=== PATIENT | female | born 1990 | race Two or more races ===

== ENCOUNTER 2017-06-25 13:15 | Observation (INO) | payer MEDICAID ==
--- NOTE | 2017-06-25 13:41 | ER Document Report ---
ED GI/ - General Chief Complaint: Abdominal Pain Stated Complaint: ABDOMINAL PAIN Time Seen by Provider: 06/25/17 13:40 Mode of Arrival: Ambulatory Information source: Patient Notes: 27yo female had may.07 in [facility]. Having cramping and bleeding ever since. of last week did not bleed. Bleeding worse since with clots. . Non painful Sex with condom since may 07. Almost fainted in the shower today, was bleeding alot, was lightheaded. No hx anemia, no transfusion, 2 c section, zhane. Seen in ER on 05-12, given cytotec. [facility] , [facility] done, said everything was OK. Started contracepitve patch betw. 05-12 and . Wears it for 6 days, then off 1 day, then new patch (total 3 weeks) Xulane -going 24 hours without the hormone. Some pelvic cramping when clots come out, took ibuprofen- TRAVEL OUTSIDE OF THE [place] IN LAST 30 DAYS: No - Related Data Allergies/Adverse Reactions: medroxyprogesterone acetate [From Depo-Provera] Allergy (Verified 06/25/17 13:21 ) Past Medical History - General Information source: Patient - Social History Smoking Status: Never Smoker Frequency of alcohol use: None Drug Abuse: None Lives with: Family Family History: Reviewed & Not Pertinent - Medical History Medical History: Negative Renal/ Medical History: Denies: Hx Peritoneal Dialysis Past Surgical History: Reports: Hx Section - x2, Hx Cholecystectomy, Other - instrument abortoion 11-4 - Immunizations Hx Diphtheria, Pertussis, Tetanus Vaccination: No Review of Systems - Review of Systems Constitutional: No symptoms reported EENT: No symptoms reported Cardiovascular: No symptoms reported Respiratory: No symptoms reported Gastrointestinal: No symptoms reported Genitourinary: No symptoms reported Female Genitourinary: See HPI Musculoskeletal: No symptoms reported Skin: No symptoms reported Hematologic/Lymphatic: No symptoms reported Neurological/Psychological: No symptoms reported Physical Exam - Vital signs Vitals: Temp Pulse BP Pulse Ox 98.4 F 81 116/64 99 06/25/17 13:41 06/25/17 13:41 06/25/17 13:41 06/25/17 13:41 Interpretation: Normal - General General appearance: Appears well, Alert - HEENT Head: Normocephalic, Atraumatic Eyes: Normal Conjunctiva: Normal Pupils: PERRL Neck: Supple. No: Thyromegally - Respiratory Respiratory status: No respiratory distress Chest status: Nontender Breath sounds: Normal Chest palpation: Normal - Cardiovascular Rhythm: Regular Heart sounds: Normal auscultation Murmur: No - Abdominal Inspection: Normal Distension: No distension Bowel sounds: Normal Tenderness: Tender - mild suprapubic Organomegaly: No organomegaly - Back Back: Normal, Nontender. No: CVA tenderness - Extremities General upper extremity: Normal inspection, Nontender, Normal color, Normal ROM , Normal temperature General lower extremity: Normal inspection, Nontender, Normal color, Normal ROM , Normal temperature, Normal weight bearing. No: Meggan's sign - Neurological Neuro grossly intact: Yes Cognition: Normal Orientation: AAOx4 [place] Coma Scale Eye Opening: Spontaneous Margarita Coma Scale Verbal: Oriented Margarita Coma Scale Motor: Obeys Commands [place] Coma Scale Total: 15 Speech: Normal Motor strength normal: LUE, RUE, LLE, RLE Sensory: Normal - Psychological Associated symptoms: Normal affect, Normal mood - Skin Skin Temperature: Warm Skin Moisture: Dry Skin Color: Normal Skin irregularity: negative: Rash Course - Re-evaluation Re-evalutation: 06/25/17 15:23 Urinalysis blood is due to the vaginal bleeding but she does have greater than 182 WBCs. She is being sent for transvaginal ultrasound. 06/25/17 15:23 06/25/17 17:[address] forman who read the US, quantitative 10. Consult Dr. Adolfo Adams the [employer] on-call who recommends putting the patient on an Necon 1/35 daily and to stop the patch and have her reschedule appointment for a repeat ultrasound in 2 weeks. I will have her follow-up if the bleeding increases and she understands these instructions. 06/25/17 17:29 very little clot when she went to bathroom at this time, no heavy bleeding. 06/25/17 17:[address] Adams back because he wanted her to have 1/35 which Necon only comes in 0.5/35 or 1/50 and he recommended that I prescribed for Necon 35. 06/25/17 17:51 Patient called me because she is now dizzy and weak after filling of the toilet bowl with bright red blood it was hortencia bleeding which I saw myself. I have consulted with Dr. Betancur and I am doing a pelvic at this time starting a saline lock. 06/25/17 18:07 no food since 1100, 1 sip of water. Hortencia hemorrhaging with clots from vagina, so fast can't see the cervix. called dr. adams back and he will come see the pt. 06/25/17 19:08 pt going to OR for d and C - Vital Signs Vital signs: Temp Pulse Resp BP Pulse Ox 98.4 F 81 20 116/74 98 06/25/17 13:41 06/25/17 13:41 06/25/17 18:16 06/25/17 18:16 06/25/17 18:16 - Laboratory Result Diagrams: 06/25/17 14:07 06/25/17 14:07 Laboratory results interpreted by me: 06/25/17 06/25/17 06/25/17 14:07 14:07 14:07 Hgb 11.3 L Hct 33.4 L Serum HCG, Qual POSITIVE H Beta HCG, Quant Urine Protein >=500 H Urine Blood LARGE H Urine Urobilinogen 2.0 H Ur Leukocyte Esterase SMALL H 06/25/17 14:07 Hgb Hct Serum HCG, Qual Beta HCG, Quant 10.54 H Urine Protein Urine Blood Urine Urobilinogen Ur Leukocyte Esterase Discharge - Discharge Clinical Impression: Vaginal bleeding, Pyuria, 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 Urinary tract infection Qualifiers: Urinary tract infection type: site unspecified Hematuria presence: without hematuria Qualified Code(s): N39.0 - Urinary tract infection, site not specified Condition: Fair Disposition: ADMITTED OBSERVATION Admitting Provider: [facility] Admitted: OR Instructions: Urinary Tract Infection ([facility]), Vaginal Bleeding ([facility]) Additional Instructions: start the NECON 35 daily today schedule appt with [facility] for Jul 09, (2 weeks) stop the patches Return to the emergency room increased bleeding or cramping dizziness Prescriptions: Cephalexin Monohydrate [Keflex 500 mg Capsule] 500 mg PO QID #28 capsule Forms: Return to Work Referrals: KARLOS ADAMS MD [ACTIVE STAFF] - 07/09/17
[2017-06-25 14:28] LABS: ABSOLUTE BASOPHILS # (AUTO) 0.1 10^3/uL (0.0-0.2); ABSOLUTE EOSINOPHILS # (AUTO) 0.3 10^3/uL (0.0-0.6); ABSOLUTE LYMPHOCYTES (AUTO) 1.4 10^3/uL (0.5-4.7); ABSOLUTE MONOCYTES (AUTO) 0.6 10^3/uL (0.1-1.4); BASOPHILS % (AUTO) 0.6 % (0-2); EOSINOPHILS % (AUTO) 3.4 % (0-6); HEMATOCRIT 33.4 % (36.0-47.0); HEMOGLOBIN 11.3 g/dL (12.0-15.5); HGB HCT DIFFERENCE 0.5; LYMPHOCYTES % (AUTO) 16.9 % (13-45); MEAN CORPUSCULAR HGB CONC 33.9 g/dL (32.0-36.0); MEAN CORPUSCULAR VOLUME 89 fl (80-97); MONOCYTES % (AUTO) 7.3 % (3-13); RED BLOOD COUNT 3.77 10^6/uL (3.72-5.28); RED CELL DISTRIBUTION WIDTH 13.7 % (11.5-14.0); SEGMENTED NEUTROPHILS % (AUTO) 71.8 % (42-78); WHITE BLOOD COUNT 8.3 10^3/uL (4.0-10.5)
[2017-06-25 14:46] LABS: APPEARANCE,URINE SLIGHTLY-CLOUDY; BILIRUBIN,URINE NEGATIVE (NEGATIVE); GLUCOSE, URINE NEGATIVE (NEGATIVE); KETONES,URINE NEGATIVE (NEGATIVE); LEUKOCYTE ESTERASE,URINE SMALL (NEGATIVE); NITRITE,URINE NEGATIVE (NEGATIVE); PROTEIN,URINE >=500 mg/dL (NEGATIVE); URINE SPECIFIC GRAVITY 1.025
[2017-06-25] MEDS ORDERED: CEPHALEXIN 500 MG CAPSULE PO ONE (15:24)
[2017-06-25 15:29] LABS: ALANINE AMINOTRANSFERASE 21 U/L (9-52); ALBUMIN 4.2 g/dL (3.5-5.0); ALKALINE PHOSPHATASE 64 U/L (38-126); ANION GAP 9 (5-19); ASPARTATE AMINO TRANSFERASE 22 U/L (14-36); BILIRUBIN,DIRECT 0.1 mg/dL (0.0-0.4); BILIRUBIN,TOTAL 0.3 mg/dL (0.2-1.3); BLOOD UREA NITROGEN 7 mg/dL (7-20); CALCIUM 9.6 mg/dL (8.4-10.2); CARBON DIOXIDE 27 mmol/L (22-30); CHLORIDE 104 mmol/L (98-107); CREATININE RESULT 0.61 mg/dL (0.52-1.25); GLUCOSE 90 mg/dL (75-110); POTASSIUM 4.2 mmol/L (3.6-5.0); SODIUM 140.3 mmol/L (137-145); TOTAL PROTEIN 6.8 g/dL (6.3-8.2)
--- NOTE | 2017-06-25 15:54 | RADIOLOGY REPORT (SQ) ---
EXAM DESCRIPTION: U/S NON-OB PELVIS TV W/O DOP COMPLETED DATE/TIME: 06/25/2017 3:35 pm REASON FOR STUDY: 6 weeks vaginal bleeding post COMPARISON: Ultrasound 06/03/2017 TECHNIQUE: Dynamic and static grayscale images acquired of the pelvis via transvaginal approach and recorded on PACS. Additional selected color Doppler and spectral images recorded. LIMITATIONS: None. FINDINGS: UTERUS: Contour normal. No mass. Uterus 10 x 6 x 5 mm in size. ENDOMETRIAL STRIPE: The fundal endometrial canal is abnormal. There is fundal endometrial thickening , up to 1.5 cm in thickness. A prominent myometrial vessel is identified, coursing towards the endom etrial canal. There is a 1 cm pseudoaneurysm with arterial pulsatile flow. CERVIX: Closed, 3 cm in length RIGHT OVARY: No abnormal masses. Right ovary is 4.6 x 2.4 x 2.1 cm in size RIGHT OVARY DOPPLER: Normal arterial vascular flow without evidence for torsion. LEFT OVARY: No abnormal masses. Left ovary 4 x 2.7 x 2.4 cm in size LEFT OVARY DOPPLER: Normal arterial vascular flow without evidence for torsion. FREE FLUID: None noted. OTHER: No other significant finding. 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 There is thickening of the endometrium in the fundal uter us, retained products of conception could not be excluded. . No free cul-de-sac fluid. No adnexal masses. Ovaries unremarkable. TECHNICAL DOCUMENTATION: JOB ID: [id number] [employer]- All Rights Reserved
[2017-06-25 16:27] LABS: ADD ON TESTING BLD IN LAB ACKNOWLEDGE
[2017-06-25] MEDS ORDERED: ACETAMINOPHEN 325 MG TABLET PO ONE (16:51)
[2017-06-25] MEDS ORDERED: IBUPROFEN 600 MG TABLET PO ONE (17:29)
[2017-06-25] MEDS ORDERED: NORMAL SALINE 1000 ML 500 ML IV ONE (18:01)
[2017-06-25] MEDS ORDERED: MORPHINE SULFATE 10 MG/ML INJ IV ONE (18:11)
[2017-06-25] MEDS ORDERED: HYDROMORPHONE HCL INJ/PF 2 MG/ML AMPULE ONE (19:01)
[2017-06-25] MEDS ORDERED: MIDAZOLAM 2 MG/2 ML INJ ONE (19:02)
[2017-06-25] MEDS ORDERED: KETOROLAC TROMETHAMINE 60 MG/2 ML SDV ONE (19:02)
[2017-06-25] MEDS ORDERED: PROPOFOL INJ 200 MG/20 ML VIAL IV ONE (19:02)
[2017-06-25] MEDS ORDERED: DEXAMETHASONE SOD PHOSPHATE INJ 4 MG/1 ML VIAL ONE (19:02)
[2017-06-25] MEDS ORDERED: ONDANSETRON HCL INJ/PF 4 MG/2 ML SDV ONE (19:02)
[2017-06-25] MEDS ORDERED: CEFAZOLIN INJ 1 GM VIAL ONE (19:35)
[2017-06-25] MEDS ORDERED: MEPERIDINE HCL/PF INJ 25 MG/1 ML DISP.SYRIN IV PRN (20:02)
[2017-06-25] MEDS ORDERED: DIPHENHYDRAMINE HCL 50 MG/ML VIAL IV PRN (20:02)
[2017-06-25] MEDS ORDERED: FENTANYL CITRATE INJ/PF 100 MCG/2 ML AMPUL IV PRN ×3 (20:02)
[2017-06-25] MEDS ORDERED: MORPHINE SULFATE 10 MG/ML INJ IV PRN (20:02)
[2017-06-25] MEDS ORDERED: PROMETHAZINE HCL INJ 25 MG/1 ML VIAL IV PRN ×2 (20:02)
[2017-06-25] MEDS ORDERED: OXYCODONE-ACETAMINOPHEN 5-325 MG TABLET PO PRN ×3 (20:02→20:31)
--- NOTE | 2017-06-25 20:14 | Operative Report ---
Operative Report DATE OF SURGERY: 06/25/17 PREOPERATIVE DIAGNOSIS: Heavy bleeding post therapeutic , suspected retained products POSTOPERATIVE DIAGNOSIS: Same OPERATION: Suction D&C SURGEON: KARLOS CACERES ANESTHESIA: GA TISSUE REMOVED OR ALTERED: Uterine contents COMPLICATIONS: None ESTIMATED BLOOD LOSS: 50 cc but prior to surgery she had quite a bit of blood loss in the emergen INTRAOPERATIVE FINDINGS: Uterus sounded 10 cm PROCEDURE: Patient was taken the OR and placed in supine position. General anesthesia was induced. She is placed in dorsolithotomy position using Anil stirrups. Her perineum and vagina were prepared and draped in sterile fashion. Her bladder was drained with red rubber catheter. A weighted speculum was placed in the anterior lip cervix grasped with a tenaculum. Uterus sounded 10 cm before and after the case. The cervix was gently dilated. A size 10 suction curette was then used to evacuate the uterine contents. There appeared to be a decent return of tissue. At the end of the case the uterus was explored with a gentle sharp curette and no retained products were noted. All instruments were removed she is placed back in supine position taken to recovery room stable condition.
[2017-06-25] MEDS ORDERED: RINGERS SOLUTION,LACTATED 1,000 ML IV PRN (20:30)
[2017-06-25 21:29] LABS: HEMATOCRIT 24.3 % (36.0-47.0); MEAN CORPUSCULAR HEMOGLOBIN 30.2 pg (27.0-33.4); MEAN CORPUSCULAR HGB CONC 33.5 g/dL (32.0-36.0); MEAN CORPUSCULAR VOLUME 90 fl (80-97); RED CELL DISTRIBUTION WIDTH 13.1 % (11.5-14.0); WHITE BLOOD COUNT 8.6 10^3/uL (4.0-10.5)
[2017-06-25 21:30] LABS: HEMOGLOBIN 8.1 g/dL (12.0-15.5)
[2017-06-25] MEDS: MISOPROSTOL 0.2 MG TABLET PO SCH (21:49)
[2017-06-25] MEDS ORDERED: DOXYCYCLINE HYCLATE 100 MG in DEXTROSE 5%-WATER 250 ML IV ONE (22:00)
[2017-06-26] MEDS: MISOPROSTOL 0.2 MG TABLET PO SCH ×2 (04:13→08:28)
[2017-06-26 07:07] LABS: HEMATOCRIT 22.5 % (36.0-47.0); HGB HCT DIFFERENCE 0.3; MEAN CORPUSCULAR HEMOGLOBIN 30.1 pg (27.0-33.4); MEAN CORPUSCULAR VOLUME 89 fl (80-97); RED BLOOD COUNT 2.54 10^6/uL (3.72-5.28); RED CELL DISTRIBUTION WIDTH 13.2 % (11.5-14.0); WHITE BLOOD COUNT 13.7 10^3/uL (4.0-10.5)
[2017-06-26 07:13] LABS: HEMOGLOBIN 7.6 g/dL (12.0-15.5)
--- NOTE | 2017-06-26 08:31 | PDOC DISCHARGE SUMMARY ---
General - Admit/Disc Date/PCP Admission Date/Primary Care Provider: 06/25/17 19:16 Discharge Date: 06/26/17 - Discharge Diagnosis (1) Vaginal bleeding Is this a current diagnosis for this admission?: Yes - Additional Information Resuscitation Status: Full Code Home Medications: No Home Medications 06/25/17 History of Present Illness Patient complains of: Vaginal bleeding History of Present Illness: JILL VALENTINE is a 27 year old female Patient was admitted with vaginal bleeding proximal in 1 month after a . She appears to have retained products on ultrasound. She was admitted and underwent a suction D&C and watched overnight. She is up doing well this morning and will be discharged later today. Hospital Course Hospital Course: Patient was admitted and underwent suction D&C. She is now doing very well no more vaginal bleeding. She is tolerating a regular diet. She will be discharged home today Physical Exam - Physical Exam Vital Signs: Temp Pulse Resp BP Pulse Ox 97.9 F 66 18 96/43 L 100 06/26/17 04:22 06/26/17 04:22 06/26/17 04:22 06/26/17 04:22 06/26/17 04:22 Intake & Output 06/25/17 06/26/17 06/27/17 06:59 06:59 06:59 Intake Total 1355 Output Total 1960 Balance -605 General appearance: PRESENT: no acute distress, well-developed, well-nourished GI/Abdominal exam: PRESENT: normal bowel sounds, soft. 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 There is thickening of the endometrium in the fundal uterus, retained products of conception could not be excluded. . No free cul-de-sac fluid. No adnexal masses. Ovaries unremarkable. Plan Discharge Plan: Home today with follow-up in 1 week. Discharge medications will be an iron a day. Time Spent: Greater than 30 Minutes
[2017-06-26] MEDS ORDERED: ONDANSETRON 4 MG TAB.RAPDIS PO PRN (09:16)
[2017-06-26] MEDS ORDERED: ONDANSETRON 4 MG TAB.RAPDIS ONE (09:23)
[2017-06-26 11:10] VITALS: BP 100/56
== END 2017-06-26 11:40 | disposition home or self-care (01) ==
LOC: ER 13:15 → EH 19:16 → 2S 20:51
PROVIDERS: ATTEND Obstetrics & Gynecology
PROC: 10D17Z9 Manual Extraction of Products of Conception, Retained, Via Natural or Artificial Opening (ICD-10-PCS; principal; 2017-06-25 20:00)
DX: O03.6 Delayed or excessive hemorrhage following complete or unspecified spontaneous abortion (principal); N39.0 Urinary tract infection, site not specified; Z90.49 Acquired absence of other specified parts of digestive tract
CPT/HCPCS: 99285; 96361; 96374; 86900; 86901; 36415 ×2; 87086; 86850; 84702; 84703; 85025; 85027 ×2; 87088; 80053; 81001; 88305 ×2; 76830; 59812; J3490 ×3; J2250; J0690; J1100; J1885; S0119; J2270; J1170; J2405; J7060; J7030; J7120; J2704; 940

== ENCOUNTER 2017-06-27 19:56 | Emergency (ER) | payer MEDICAID ==
[2017-06-27] MEDS ORDERED: NORMAL SALINE 1000 ML 1,000 ML IV ONE (20:29)
--- NOTE | 2017-06-27 20:30 | ER Document Report ---
ED Medical Screen (RME) - General Chief Complaint: General Weakness Stated Complaint: WEAKNESS Time Seen by Provider: 06/27/17 20:25 Mode of Arrival: Ambulatory Information source: Patient Notes: 27-year-old female who had a D&C a few days ago for a incomplete miscarriage presents with complaints of continued vaginal bleeding heavily with generalized weakness Patient was discharged with a hemoglobin of 7.6 I have greeted and performed a rapid initial assessment of this patient. A comprehensive ED assessment and evaluation of the patient, analysis of test results and completion of the medical decision making process will be conducted by additional ED providers. PHYSICAL EXAMINATION: GENERAL: Well-appearing, well-nourished and in no acute distress. HEAD: Atraumatic, normocephalic. EYES: Pupils equal round extraocular movements intact, conjunctiva are normal. ENT: Nares patent NECK: Normal range of motion LUNGS: No respiratory distress Musculoskeletal: Normal range of motion NEUROLOGICAL: Normal speech, normal gait. PSYCH: Normal mood, normal affect. SKIN: Warm, Dry, normal turgor, no rashes or lesions noted. TRAVEL OUTSIDE OF THE [place] IN LAST 30 DAYS: No - Related Data Allergies/Adverse Reactions: medroxyprogesterone acetate [From Depo-Provera] Allergy (Verified 06/25/17 13:21 ) Past Medical History - Social History Frequency of alcohol use: Occasional Drug Abuse: None Renal/ Medical History: Denies: Hx Peritoneal Dialysis Past Surgical History: Reports: Hx Section - x2, Hx Cholecystectomy, Other - instrument abortoion 11-4 - Immunizations Hx Diphtheria, Pertussis, Tetanus Vaccination: No History of Influenza Vaccine for 04/2017 - 09/2017 Season: Yes Physical Exam - Vital signs Vitals: Temp Pulse BP Pulse Ox 98.6 F 86 114/70 99 06/27/17 20:11 06/27/17 20:11 06/27/17 20:11 06/27/17 20:11 Course - Vital Signs Vital signs: Temp Pulse Resp BP Pulse Ox 98.7 F 78 18 146/87 H 99 06/27/17 20:15 06/27/17 20:15 06/27/17 20:15 06/27/17 20:15 06/27/17 20:15
--- NOTE | 2017-06-27 21:05 | ER Document Report ---
ED General - General Chief Complaint: General Weakness Stated Complaint: WEAKNESS Time Seen by Provider: 06/27/17 20:25 Mode of Arrival: Ambulatory Notes: Patient is a 27-year-old female that comes emergency department for chief complaint of feeling weak, tired, and having vaginal bleeding that started tonight. She denies fever, dysuria, vaginal discharge. She had a D&C procedure for possible retained products after an elective which was performed May 07, she had had heavy bleeding since that time. She states that when she was discharged 2 days ago she felt fine, states that today she felt worse and she has been sleeping all day and then began bleeding heavier again this evening. She states she was unable to fill the prescription she was given at discharge the other day. She is unable to tell me what the prescription was. She denies any daily medications. TRAVEL OUTSIDE OF THE [place] IN LAST 30 DAYS: No - Related Data Allergies/Adverse Reactions: medroxyprogesterone acetate [From Depo-Provera] Allergy (Verified 06/25/17 13:21 ) Past Medical History - General Information source: Patient - Social History Smoking Status: Current Every Day Smoker Smoking Education Provided: Yes - <3 min Frequency of alcohol use: Occasional Drug Abuse: None Lives with: Family Family History: Reviewed & Not Pertinent Patient has suicidal ideation: No Patient has homicidal ideation: No Renal/ Medical History: Denies: Hx Peritoneal Dialysis Past Surgical History: Reports: Hx Section - x2, Hx Cholecystectomy, Other - instrument 11-4 - Immunizations Hx Diphtheria, Pertussis, Tetanus Vaccination: No Review of Systems - Review of Systems Constitutional: See HPI EENT: No symptoms reported Cardiovascular: See HPI Respiratory: No symptoms reported Gastrointestinal: No symptoms reported Genitourinary: No symptoms reported Female Genitourinary: See HPI Musculoskeletal: No symptoms reported Skin: No symptoms reported Hematologic/Lymphatic: No symptoms reported Neurological/Psychological: No symptoms reported Physical Exam - Vital signs Vitals: Temp Pulse BP Pulse Ox 98.6 F 86 114/70 99 06/27/17 20:11 06/27/17 20:11 06/27/17 20:11 06/27/17 20:11 Interpretation: Normal - General General appearance: Alert, Other - slightly pale, but alert, responsive, does not appear to be in any distress - HEENT Head: Normocephalic, Atraumatic Eyes: Normal Conjunctiva: Normal Extraocular movements intact: Yes Eyelashes: Normal Pupils: PERRL Nasal: Normal Mouth/Lips: Normal Mucous membranes: Normal Pharynx: Normal Neck: Normal - Respiratory Respiratory status: No respiratory distress Chest status: Nontender Breath sounds: Normal Chest palpation: Normal - Cardiovascular Rhythm: Regular. No: Tachycardia Heart sounds: Normal auscultation, S1 appreciated, S2 appreciated Murmur: No - Abdominal Inspection: Normal Distension: No distension Bowel sounds: Normal Tenderness: Nontender. No: Tender, Guarding Organomegaly: No organomegaly - Genitourinary Speculum exam: Cervix closed Vaginal bleeding: Mild - Minimal spotting with a few clots noted in the vaginal vault, no heavy bleeding, no other abnormality noted. RN Eva present at bedside. - Back Back: Normal, Nontender - Extremities General upper extremity: Normal inspection, Nontender, Normal color, Normal ROM , Normal temperature General lower extremity: Normal inspection, Nontender, Normal color, Normal ROM , Normal temperature, Normal weight bearing. No: Meggan's sign - Neurological Neuro grossly intact: Yes Cognition: Normal Orientation: AAOx4 Margarita Coma Scale Eye Opening: Spontaneous [place] Coma Scale Verbal: Oriented Margarita Coma Scale Motor: Obeys Commands [place] Coma Scale Total: 15 Speech: Normal Motor strength normal: LUE, RUE, LLE, RLE Sensory: Normal - Psychological Associated symptoms: Normal affect, Normal mood - Skin Skin Temperature: Warm Skin Moisture: Dry Skin Color: Normal Course - Re-evaluation Re-evalutation: Discharge summary states she was supposed to be taking daily iron. She states she does not have a prescription for this and was going to increase it in her diet instead. Will prescribe. Patient is not hypotensive or tachycardic, she is mildly pale, she does appear tired but she does not appear to be in any distress. No significant tenderness to the abdomen. Hemoglobin is actually increased from yesterday. Patient is not tachycardic, does not appear dehydrated on examination. Minimal bleeding on vaginal exam. Chemistry unremarkable. Called and spoke with Dr. Booker, ICT ANALYST who she saw previously, discussed options. Tomorrow is [place] and no pharmacy will be open. He does recommend patient be placed on oral contraceptive to help treat bleeding, because nothing is open tomorrow patient will be given a dose of tranexamic acid. He states agreement with this plan and patient is to follow- up in the office otherwise and return if she worsens. I discussed with patient , she states she has been on mixed oral contraceptive before and she only had a reaction when she was given the shot of Depo-Provera. She states she is not allergic to combination oral contraceptive. Patient is asking to go home, orthostatics were checked and she does not have tachycardia or hypotension. Patient discharged with scripts, follow-up recommendations, return precautions which were discussed with patient and significant other at bedside. They state understanding and agreement. - Vital Signs Vital signs: Temp Pulse Resp BP Pulse Ox 98.7 F 60 18 109/57 L 100 06/27/17 20:15 06/27/17 22:22 06/27/17 20:15 06/27/17 22:22 06/27/17 22:21 - Laboratory Result Diagrams: 06/27/17 20:44 06/27/17 20:44 Laboratory results interpreted by me: 06/27/17 06/27/17 20:44 20:44 RBC 2.68 L Hgb 8.0 L Hct 23.8 L Total Protein 6.0 L Discharge - Discharge Clinical Impression: Vaginal bleeding, Weakness Condition: Stable Disposition: HOME, SELF-CARE Additional Instructions: I spoke tonight with Dr. dAolfo Booker, OBGYN. Your hemoglobin is actually not decreased from before, we have given you TXA for the bleeding tonight. Take the iron and contraceptive pills for the anemia and bleeding. Follow up closely with OBGYN in the office. Return if you worsen including dizziness, passing out, abdominal pain, heavy bleeding, fever, or any other concerning symptoms. Prescriptions: Ferrous Sulfate [Iron] 325 mg PO TID #30 tablet Norgestimate-Ethinyl Estradiol [Sprintec 28 Day Tablet] 1 each PO ASDIR PRN #56 tablet PRN Reason:
[2017-06-27 21:06] LABS: ABSOLUTE EOSINOPHILS # (AUTO) 0.5 10^3/uL (0.0-0.6); ABSOLUTE LYMPHOCYTES (AUTO) 3.3 10^3/uL (0.5-4.7); ABSOLUTE MONOCYTES (AUTO) 0.8 10^3/uL (0.1-1.4); ABSOLUTE NEUT (AUTO) 5.3 10^3/uL (1.7-8.2); BASOPHILS % (AUTO) 0.4 % (0-2); EOSINOPHILS % (AUTO) 4.6 % (0-6); HEMATOCRIT 23.8 % (36.0-47.0); HGB HCT DIFFERENCE 0.2; MEAN CORPUSCULAR HGB CONC 33.7 g/dL (32.0-36.0); MEAN CORPUSCULAR VOLUME 89 fl (80-97); MONOCYTES % (AUTO) 8.5 % (3-13); RED BLOOD COUNT 2.68 10^6/uL (3.72-5.28); RED CELL DISTRIBUTION WIDTH 13.5 % (11.5-14.0); SEGMENTED NEUTROPHILS % (AUTO) 53.5 % (42-78); WHITE BLOOD COUNT 9.9 10^3/uL (4.0-10.5)
[2017-06-27 21:19] LABS: ALANINE AMINOTRANSFERASE 20 U/L (9-52); ALBUMIN 3.7 g/dL (3.5-5.0); ALKALINE PHOSPHATASE 54 U/L (38-126); ANION GAP 10 (5-19); ASPARTATE AMINO TRANSFERASE 22 U/L (14-36); BILIRUBIN,DIRECT 0.2 mg/dL (0.0-0.4); BILIRUBIN,TOTAL 0.2 mg/dL (0.2-1.3); BLOOD UREA NITROGEN 9 mg/dL (7-20); CALCIUM 9.2 mg/dL (8.4-10.2); CARBON DIOXIDE 28 mmol/L (22-30); CHLORIDE 106 mmol/L (98-107); GLUCOSE 85 mg/dL (75-110); SODIUM 144.2 mmol/L (137-145)
[2017-06-27] MEDS ORDERED: KETOROLAC TROMETHAMINE INJ/PF 30 MG/1 ML SDV IV ONE (21:26)
[2017-06-27] MEDS ORDERED: TRANEXAMIC ACID INJ/PF 1,000 MG/10 ML SDV IV ONE (22:29)
[2017-06-28 00:12] VITALS: BP 101/61
== END 2017-06-27 23:30 | disposition home or self-care (01) ==
LOC: ER 19:56
DX: N93.9 Abnormal uterine and vaginal bleeding, unspecified (principal); R53.1 Weakness; F17.200 Nicotine dependence, unspecified, uncomplicated
CPT/HCPCS: 99285; 96361; 96374; 96375; 36415; 85025; 80053; J1885; J7030; J3490

== ENCOUNTER 2018-01-13 13:57 | Emergency (ER) | payer MEDICAID ==
[2018-01-13] MEDS ORDERED: ONDANSETRON 4 MG TAB.RAPDIS PO ONE (14:49)
[2018-01-13] MEDS ORDERED: NORMAL SALINE 1000 ML 1,000 ML IV ONE (14:50)
--- NOTE | 2018-01-13 14:54 | ER Document Report ---
ED General - General Chief Complaint: Foot Pain Stated Complaint: CRAMPING Time Seen by Provider: 01/13/18 14:49 Mode of Arrival: Ambulatory Information source: Patient Notes: 27-year-old female presents emergency department with complaints of diffuse muscle cramps that started yesterday. Patient states that she was driving in her car and thinks that she may be dehydrated. She states that she has been drinking water. Or exacerbating factors. She denies any nausea, vomiting, diarrhea, constipation, chest pain, shortness of breath, abdominal pain. TRAVEL OUTSIDE OF THE [place] IN LAST 30 DAYS: No - HPI Onset: Yesterday Onset/Duration: Gradual Quality of pain: Cramping Severity: Mild Associated symptoms: None Exacerbated by: Denies Relieved by: Denies Similar symptoms previously: No Recently seen / treated by doctor: No - Related Data Allergies/Adverse Reactions: medroxyprogesterone acetate [From Depo-Provera] Allergy (Verified 01/13/18 13:59 ) Past Medical History - General Information source: Patient - Social History Smoking Status: Current Every Day Smoker Chew tobacco use (# tins/day): No Frequency of alcohol use: Occasional Drug Abuse: None Family History: Reviewed & Not Pertinent Patient has suicidal ideation: No Patient has homicidal ideation: No Renal/ Medical History: Denies: Hx Peritoneal Dialysis Past Surgical History: Reports: Hx Section - x2, Hx Cholecystectomy, Other - instrument 11-4 - Immunizations Hx Diphtheria, Pertussis, Tetanus Vaccination: No Review of Systems - Review of Systems Constitutional: No symptoms reported EENT: No symptoms reported Cardiovascular: No symptoms reported Respiratory: No symptoms reported Gastrointestinal: No symptoms reported Genitourinary: No symptoms reported Female Genitourinary: No symptoms reported Musculoskeletal: Muscle pain Skin: No symptoms reported Hematologic/Lymphatic: No symptoms reported Neurological/Psychological: No symptoms reported -: Yes All other systems reviewed and negative Physical Exam - Vital signs Vitals: Temp Pulse Resp BP Pulse Ox 97.9 F 154 H 28 H 112/75 98 01/13/18 14:03 01/13/18 14:03 01/13/18 14:03 01/13/18 14:03 01/13/18 14:03 Interpretation: Normal, Tachycardic - Notes Notes: PHYSICAL EXAMINATION: GENERAL: Well-appearing, well-nourished and in no acute distress. HEAD: Atraumatic, normocephalic. EYES: Pupils equal round and reactive to light, extraocular movements intact, conjunctiva are normal. ENT: Nares patent, oropharynx clear without exudates. Moist mucous membranes. NECK: Normal range of motion, supple without lymphadenopathy LUNGS: Breath sounds clear to auscultation bilaterally and equal. No wheezes rales or rhonchi. HEART: Regular rate and rhythm without murmurs ABDOMEN: Soft, nontender, nondistended abdomen. No guarding, no rebound. No masses appreciated. Female : deferred Musculoskeletal: Normal range of motion, no pitting or edema. No cyanosis. NEUROLOGICAL: Cranial nerves grossly intact. Normal speech, normal gait. Normal sensory, motor exams PSYCH: Normal mood, normal affect. SKIN: Warm, Dry, normal turgor, no rashes or lesions noted. Course - Re-evaluation Re-evalutation: 01/13/18 16:39 Labs were obtained and are within normal limits. Patient given fluids, zofran, flexeril in the ED. I will discharge the patient home with a rx for flexeril. Patient instructed to take the medication prescribed as directed, to follow-up with her primary care physician this week, and to return to emergency department for worsening symptoms. - Vital Signs Vital signs: Temp Pulse Resp BP Pulse Ox 97.9 F 154 H 28 H 112/75 98 01/13/18 14:03 01/13/18 14:03 01/13/18 14:03 01/13/18 14:03 01/13/18 14:03 - Laboratory Result Diagrams: 01/13/18 15:31 01/13/18 15:31 Laboratory results interpreted by me: 01/13/18 01/13/18 01/13/18 15:14 15:31 15:31 Hgb 10.2 L Hct 33.5 L MCV 68 L MCH 20.7 L MCHC 30.4 L RDW 26.1 H AST 40 H Urine Urobilinogen 4.0 H Ur Leukocyte Esterase TRACE H Discharge - Discharge Clinical Impression: Muscle cramp Condition: Stable Disposition: HOME, SELF-CARE Instructions: Leg Cramps ([facility]), Family Physicians / Practices Prescriptions: Cyclobenzaprine HCl [Flexeril 10 mg Tablet] 10 mg PO TIDP PRN #15 tablet PRN Reason:
[2018-01-13 15:37] LABS: AMORPHOUS SEDIMENT,URINE TRACE /HPF; APPEARANCE,URINE CLOUDY; BILIRUBIN,URINE NEGATIVE (NEGATIVE); COLOR,URINE YELLOW; GLUCOSE, URINE NEGATIVE (NEGATIVE); KETONES,URINE NEGATIVE (NEGATIVE); LEUKOCYTE ESTERASE,URINE TRACE (NEGATIVE); NITRITE,URINE NEGATIVE (NEGATIVE); PROTEIN,URINE NEGATIVE (NEGATIVE); URINE SPECIFIC GRAVITY 1.018
[2018-01-13 15:51] LABS: ABSOLUTE BASOPHILS # (AUTO) 0.1 10^3/uL (0.0-0.2); ABSOLUTE EOSINOPHILS # (AUTO) 0.2 10^3/uL (0.0-0.6); ABSOLUTE LYMPHOCYTES (AUTO) 1.5 10^3/uL (0.5-4.7); ABSOLUTE NEUT (AUTO) 5.7 10^3/uL (1.7-8.2); BASOPHILS % (AUTO) 0.8 % (0-2); EOSINOPHILS % (AUTO) 1.9 % (0-6); HEMATOCRIT 33.5 % (36.0-47.0); HEMOGLOBIN 10.2 g/dL (12.0-15.5); LYMPHOCYTES % (AUTO) 18.1 % (13-45); MEAN CORPUSCULAR HEMOGLOBIN 20.7 pg (27.0-33.4); MEAN CORPUSCULAR HGB CONC 30.4 g/dL (32.0-36.0); MEAN CORPUSCULAR VOLUME 68 fl (80-97); MONOCYTES % (AUTO) 11.4 % (3-13); PLATELET COUNT 331 10^3/uL (150-450); RED BLOOD COUNT 4.92 10^6/uL (3.72-5.28); RED CELL DISTRIBUTION WIDTH 26.1 % (11.5-14.0); SEGMENTED NEUTROPHILS % (AUTO) 67.8 % (42-78); TOTAL CELLS COUNTED % (AUTO) 100 %; WHITE BLOOD COUNT 8.4 10^3/uL (4.0-10.5)
[2018-01-13 16:06] LABS: ALANINE AMINOTRANSFERASE 33 U/L (9-52); ALBUMIN 4.6 g/dL (3.5-5.0); ALKALINE PHOSPHATASE 70 U/L (38-126); ANION GAP 13 (5-19); ASPARTATE AMINO TRANSFERASE 40 U/L (14-36); BILIRUBIN,DIRECT 0.3 mg/dL (0.0-0.4); BILIRUBIN,TOTAL 0.5 mg/dL (0.2-1.3); BLOOD UREA NITROGEN 14 mg/dL (7-20); CALCIUM 9.8 mg/dL (8.4-10.2); CARBON DIOXIDE 27 mmol/L (22-30); CHLORIDE 105 mmol/L (98-107); CREATINE KINASE 102 U/L (30-135); GLUCOSE 92 mg/dL (75-110); POTASSIUM 4.8 mmol/L (3.6-5.0); SODIUM 144.5 mmol/L (137-145); TOTAL PROTEIN 7.8 g/dL (6.3-8.2)
[2018-01-13 16:11] LABS: ANISOCYTOSIS 3+; HYPOCHROMASIA SLIGHT; OVALOCYTES SLIGHT; POIKILOCYTOSIS SLIGHT; TARGET CELLS SLIGHT
[2018-01-13 16:12] LABS: PLATELET COMMENT ADEQUATE
[2018-01-13] MEDS ORDERED: CYCLOBENZAPRINE HCL 10 MG TABLET PO ONE (16:26)
[2018-01-13 16:49] VITALS: BP 115/70
== END 2018-01-13 16:47 | disposition home or self-care (01) ==
LOC: ER 13:57
DX: R25.2 Cramp and spasm (principal); M79.1 Myalgia; F17.200 Nicotine dependence, unspecified, uncomplicated; Z88.8 Allergy status to other drugs, medicaments and biological substances
CPT/HCPCS: 99283; 96360; 36415; 82550; 85025; 81025; 80053; 81001; S0119; J7030

== ENCOUNTER 2019-04-30 22:27 | Emergency (ER) | payer MEDICAID ==
[2019-04-30] MEDS ORDERED: LIDOCAINE 0.5%/EPINEPHRINE INJ 50 ML VIAL INJ ONE (22:45)
[2019-04-30] MEDS ORDERED: IBUPROFEN 800 MG TABLET PO ONE (22:45)
--- NOTE | 2019-04-30 22:49 | ER Document Report ---
ED Wound - General Chief Complaint: Laceration Stated Complaint: LACERATION TO LEFT ARM Time Seen by Provider: 04/30/19 22:45 Primary Care Provider: FELICE SANITAGO FNP-C [Primary Care Provider] - Follow up as needed Notes: Patient is a 28-year-old female presents to the emergency department for a self- inflicted laceration to her left forearm. Patient voices that she is a "cutter." States tonight she "went too far." Patient voices she does take Effexor for depression. States she does have an appointment with her counselor tomorrow. Patient is intermittently crying during examination, states she feels very remorseful. States "I did not mean to cut that far." Patient's denying any homicidal ideations. She is denying any other injuries. Does admit to drinking alcohol tonight. Patient voices her last tetanus was within the last 5 years. TRAVEL OUTSIDE OF THE [place] IN LAST 30 DAYS: No - Related Data Allergies/Adverse Reactions: medroxyprogesterone acetate [From Depo-Provera] Allergy (Verified 01/13/18 13:59) Past Medical History - General Information source: Patient - Social History Smoking Status: Current Every Day Smoker Frequency of alcohol use: Occasional Family History: Reviewed & Not Pertinent Patient has suicidal ideation: No Patient has homicidal ideation: No Renal/ Medical History: Denies: Hx Peritoneal Dialysis Past Surgical History: Reports: Hx Section - x2, Hx Cholecystectomy, Other - instrument 11-4 - Immunizations Hx Diphtheria, Pertussis, Tetanus Vaccination: No Review of Systems - Review of Systems Constitutional: denies: Fever EENT: No symptoms reported Cardiovascular: No symptoms reported Respiratory: No symptoms reported Gastrointestinal: No symptoms reported Genitourinary: No symptoms reported Female Genitourinary: No symptoms reported Musculoskeletal: No symptoms reported Skin: See HPI Hematologic/Lymphatic: No symptoms reported Neurological/Psychological: See HPI Physical Exam - Vital signs Vitals: Pulse Resp BP Pulse Ox 109 H 16 115/57 L 95 04/30/19 22:42 04/30/19 22:42 04/30/19 22:42 04/30/19 22:42 - Notes Notes: GENERAL: Alert, interacts well. No acute distress. HEAD: Normocephalic, atraumatic. EYES: Pupils equal, round, and reactive to light. Extraocular movements intact. ENT: Oral mucosa moist, tongue midline. NECK: Full range of motion. Supple. Trachea midline. LUNGS: Clear to auscultation bilaterally, no wheezes, rales, or rhonchi. No respiratory distress. HEART: Regular rate and rhythm. No murmur ABDOMEN: Soft, non-tender. Non-distended. Bowel sounds present in all 4 quadrants. EXTREMITIES: Moves all 4 extremities spontaneously. No edema, normal radial and dorsalis pedis pulses bilaterally. No cyanosis. BACK: no cervical, thoracic, lumbar midline tenderness. No saddle anesthesia, normal distal neurovascular exam. NEUROLOGICAL: Alert and oriented x3. Normal speech. cranial nerves II through XII grossly intact PSYCH: flat affect, depressed mood. SKIN: Warm, dry, normal turgor. Multiple superficial healing horizontal wounds noted to left anterior forearm. 1 new wound with obvious subcutaneous fat showing noted mid left anterior forearm. Bleeding controlled. Course - Re-evaluation Re-evalutation: 05/01/19 00:07 Laboratory 04/30/19 04/30/19 04/30/19 22:10 22:10 22:10 WBC 9.4 RBC 4.73 Hgb 14.2 Hct 41.8 MCV 88 MCH 30.0 MCHC 33.9 RDW 14.6 H Plt Count 239 Lymph % (Auto) 49.4 H Scurry % (Auto) 8.5 Eos % (Auto) 3.2 Baso % (Auto) 0.4 Absolute Neuts (auto) 3.6 Absolute Lymphs (auto) 4.6 Absolute Monos (auto) 0.8 Absolute Eos (auto) 0.3 Absolute Basos (auto) 0.0 Seg Neutrophils % 38.5 L Sodium 147.7 H Potassium 3.7 Chloride 112 H Carbon Dioxide 16 L Anion Gap 19 BUN 7 Creatinine 0.72 Est GFR ( Amer) > 60 Est GFR (MDRD) Non-Af > 60 Glucose 131 H Calcium 9.8 Total Bilirubin 0.2 Direct Bilirubin 0.2 Neonat Total Bilirubin Not Reportable Neonat Direct Bilirubin Not Reportable Neonat Indirect Bili Not Reportable AST 38 H ALT 44 Alkaline Phosphatase 108 Total Protein 7.5 Albumin 4.6 Serum HCG, Qual NEGATIVE Urine Color Urine Appearance Urine pH Ur Specific Tiro Urine Protein Urine Glucose (UA) Urine Ketones Urine Blood Urine Nitrite Urine Bilirubin Urine Urobilinogen Ur Leukocyte Esterase Urine WBC (Auto) Urine RBC (Auto) U Hyaline Cast (Auto) Squamous Epi Cells Auto Urine Mucus (Auto) Urine Ascorbic Acid Salicylates < 1.0 L Urine Opiates Screen Urine Methadone Screen Acetaminophen < 10 L Ur Barbiturates Screen Ur Phencyclidine Scrn Ur Amphetamines Screen U Benzodiazepines Scrn Urine Cocaine Screen U Marijuana (THC) Screen Serum Alcohol 188 04/30/19 04/30/19 23:06 23:06 WBC RBC Hgb Hct MCV MCH MCHC RDW Plt Count Lymph % (Auto) Scurry % (Auto) Eos % (Auto) Baso % (Auto) Absolute Neuts (auto) Absolute Lymphs (auto) Absolute Monos (auto) Absolute Eos (auto) Absolute Basos (auto) Seg Neutrophils % Sodium Potassium Chloride Carbon Dioxide Anion Gap BUN Creatinine Est GFR ( Amer) Est GFR (MDRD) Non-Af Glucose Calcium Total Bilirubin Direct Bilirubin Neonat Total Bilirubin Neonat Direct Bilirubin Neonat Indirect Bili AST ALT Alkaline Phosphatase Total Protein Albumin Serum HCG, Qual Urine Color YELLOW Urine Appearance CLEAR Urine pH 7.0 Ur Specific Tiro 1.011 Urine Protein NEGATIVE Urine Glucose (UA) NEGATIVE Urine Ketones TRACE H Urine Blood SMALL H Urine Nitrite NEGATIVE Urine Bilirubin NEGATIVE Urine Urobilinogen NEGATIVE Ur Leukocyte Esterase NEGATIVE Urine WBC (Auto) 1 Urine RBC (Auto) 1 U Hyaline Cast (Auto) 3 Squamous Epi Cells Auto 2 Urine Mucus (Auto) RARE Urine Ascorbic Acid NEGATIVE Salicylates Urine Opiates Screen NEGATIVE Urine Methadone Screen NEGATIVE Acetaminophen Ur Barbiturates Screen NEGATIVE Ur Phencyclidine Scrn NEGATIVE Ur Amphetamines Screen NEGATIVE U Benzodiazepines Scrn NEGATIVE Urine Cocaine Screen NEGATIVE U Marijuana (THC) Screen UNCONFIRMED POSITIVE Serum Alcohol Laceration repaired, see procedure note for details. Patient tolerated well. Patient's alcohol level was noted to be 188 at 2210 hours. She should have an eoth level around 100 in 4 hours (aprox 0210 hours) and be cleared for psych eval. Otherwise pt. calm and cooperative with myself. - Vital Signs Vital signs: Temp Pulse Resp BP Pulse Ox 109 H 16 115/57 L 95 04/30/19 22:42 04/30/19 22:42 04/30/19 22:42 04/30/19 22:42 - Laboratory Result Diagrams: 04/30/19 22:10 04/30/19 22:10 Laboratory results interpreted by me: 10/27/19 10/27/19 10/27/19 22:10 22:10 23:06 RDW 14.6 H Lymph % (Auto) 49.4 H Seg Neutrophils % 38.5 L Sodium 147.7 H Chloride 112 H Carbon Dioxide 16 L Glucose 131 H AST 38 H Urine Ketones TRACE H Urine Blood SMALL H Salicylates < 1.0 L Acetaminophen < 10 L Procedures - Laceration/Wound Repair left forearm Wound length (cm): 5 Wound's Depth, Shape: Superficial, Linear Laceration pre-procedure: Sterile PPE donned, Betadine prep applied, Sterile drapes applied, Shur-Clens applied Anesthetic type: 1% Lidocaine w/epi Volume Anesthetic (mLs): 5 Wound explored: Clean Irrigated w/ Saline (mLs): 1,000 Wound Debrided: Minimal Wound Repaired With: Sutures Suture Size/Type: 3:0, Ethilon Number of Sutures: 8 Layer Closure?: Yes Deep Layer Suture Size/Type: 4:0, Other - Vicryl Number Deep Layer Sutures: 4 Post-procedure wound care: Sterile dressing applied Post-procedure NV exam normal: Yes Complications: No Discharge - Discharge Clinical Impression: Self-harming behavior, Laceration Disposition: PSYCH HOSP/UNIT Instructions: Laceration Care ([facility]), Soap Cleansing ([facility]) Additional Instructions: As we discussed you have been seen and treated for laceration to your left forearm. The sutures need to be taken out in the next 10 to 14 days. Please also watch for signs of infection, this would be redness, swelling, discharge from the site. Please immediately return to the emergency department should you see this. Referrals: FELICE SANTIAGO, [employer]-[facility] [Primary Care Provider] - Follow up as needed
[2019-04-30 22:54] LABS: ABSOLUTE EOSINOPHILS # (AUTO) 0.3 10^3/uL (0.0-0.6); ABSOLUTE LYMPHOCYTES (AUTO) 4.6 10^3/uL (0.5-4.7); ABSOLUTE MONOCYTES (AUTO) 0.8 10^3/uL (0.1-1.4); ABSOLUTE NEUT (AUTO) 3.6 10^3/uL (1.7-8.2); BASOPHILS % (AUTO) 0.4 % (0-2); EOSINOPHILS % (AUTO) 3.2 % (0-6); HEMATOCRIT 41.8 % (36.0-47.0); HEMOGLOBIN 14.2 g/dL (12.0-15.5); LYMPHOCYTES % (AUTO) 49.4 % (13-45); MEAN CORPUSCULAR HGB CONC 33.9 g/dL (32.0-36.0); MEAN CORPUSCULAR VOLUME 88 fl (80-97); MONOCYTES % (AUTO) 8.5 % (3-13); PLATELET COUNT 239 10^3/uL (150-450); RED BLOOD COUNT 4.73 10^6/uL (3.72-5.28); RED CELL DISTRIBUTION WIDTH 14.6 % (11.5-14.0); SEGMENTED NEUTROPHILS % (AUTO) 38.5 % (42-78); TOTAL CELLS COUNTED % (AUTO) 100 %; WHITE BLOOD COUNT 9.4 10^3/uL (4.0-10.5)
[2019-04-30 23:07] LABS: ACETAMINOPHEN < 10 ug/mL (10-30); ALBUMIN 4.6 g/dL (3.5-5.0); ALCOHOL 188 mg/dL (NONE DETECTED); ALKALINE PHOSPHATASE 108 U/L (38-126); ANION GAP 19 (5-19); ASPARTATE AMINO TRANSFERASE 38 U/L (14-36); BILIRUBIN,DIRECT 0.2 mg/dL (0.0-0.4); BILIRUBIN,TOTAL 0.2 mg/dL (0.2-1.3); BLOOD UREA NITROGEN 7 mg/dL (7-20); CALCIUM 9.8 mg/dL (8.4-10.2); CARBON DIOXIDE 16 mmol/L (22-30); CHLORIDE 112 mmol/L (98-107); GLUCOSE 131 mg/dL (75-110); POTASSIUM 3.7 mmol/L (3.6-5.0); SALICYLATE < 1.0 mg/dL (2.0-20.0); TOTAL PROTEIN 7.5 g/dL (6.3-8.2)
[2019-04-30 23:23] LABS: APPEARANCE,URINE CLEAR; BILIRUBIN,URINE NEGATIVE (NEGATIVE); COLOR,URINE YELLOW; GLUCOSE, URINE NEGATIVE (NEGATIVE); KETONES,URINE TRACE mg/dL (NEGATIVE); LEUKOCYTE ESTERASE,URINE NEGATIVE (NEGATIVE); NITRITE,URINE NEGATIVE (NEGATIVE); PROTEIN,URINE NEGATIVE (NEGATIVE); URINE SPECIFIC GRAVITY 1.011; UROBILINOGEN,URINE NEGATIVE mg/dL (<2.0)
[2019-04-30 23:44] LABS: URINE AMPHETAMINES SCREEN NEGATIVE; URINE BARBITURATES SCREEN NEGATIVE; URINE BENZODIAZEPINES SCREEN NEGATIVE; URINE COCAINE SCREEN NEGATIVE; URINE MARIJUANA (THC) SCREEN UNCONFIRMED POSITIVE; URINE METHADONE SCREEN NEGATIVE; URINE PHENCYCLIDINE SCREEN NEGATIVE
--- NOTE | 2019-05-01 01:12 | EKG REPORT ---
SEVERITY:- BORDERLINE ECG - SINUS TACHYCARDIA BORDERLINE T ABNORMALITIES, ANTERIOR LEADS : Confirmed by: Albina You MD 01-May-2019 01:11:59
[2019-05-01] MEDS ORDERED: IBUPROFEN 800 MG TABLET PO ONE (08:47)
--- NOTE | 2019-05-01 12:19 | ER Document Report ---
Doctor's Note Notes: 05/01/19 12:17 This 28-year-old female presents emergency department with a laceration to her arm. Patient has history of cutting herself. She reports she started a new medication, Lexapro 2 weeks ago. Last night she was drinking alcohol and started to cut herself. She did not mean to cut herself that deeply. Patient has been evaluated by behavioral health. She denies suicidal and homicidal ideations. She reports that her boyfriend is her support person but she also has family that live in the area. The plan is to discharge patient with community resource information. PHYSICAL EXAMINATION: GENERAL: Well-appearing and in no acute distress HEAD: Atraumatic, normocephalic. EYES: Pupils equal round extraocular movements intact, sclera anicteric, conjunctiva are normal. ENT: nares patent, Moist mucous membranes. NECK: Normal range of motion, supple without lymphadenopathy LUNGS: CTAB and equal. No wheezes rales or rhonchi. HEART: Regular rate and rhythm without murmurs ABDOMEN: Soft, no tenderness. No guarding, no rebound EXTREMITIES: Normal range of motion, NEUROLOGICAL: Cranial nerves grossly intact. Normal sensory/motor exams. PSYCH: Normal mood, normal affect. SKIN: Warm, Dry, normal turgor, dressing to left forearm noted intact. 05/01/19 12:47 Dressing removed from left forearm, site benign sutures intact. Patient was again instructed to return in 10 to 14 days for suture removal. She verbalized understanding to all instructions. Boyfriend is at the bedside and reports he will take care of patient.
[2019-05-01 13:02] VITALS: BP 132/87
== END 2019-05-01 13:02 | disposition home or self-care (01) ==
LOC: ER 22:27
DX: S51.812A Laceration without foreign body of left forearm, initial encounter (principal); X78.9XXA Intentional self-harm by unspecified sharp object, initial encounter; Y92.009 Unspecified place in unspecified non-institutional (private) residence as the place of occurrence of the external cause; F17.200 Nicotine dependence, unspecified, uncomplicated; Z90.49 Acquired absence of other specified parts of digestive tract
CPT/HCPCS: 93005; 99285; 36415; 80307 ×4; 84703; 85025; 80053; 81001; 93010; 12002; J3490 ×3

== ENCOUNTER 2019-05-02 18:02 | Emergency (ER) | payer MEDICAID ==
--- NOTE | 2019-05-02 18:13 | ER Document Report ---
ED Medical Screen (RME) - General Chief Complaint: Arm Pain Stated Complaint: LEFT ARM PAIN Time Seen by Provider: 05/02/19 18:11 Primary Care Provider: FELICE SANTIAGO FNP-C [Primary Care Provider] - Follow up as needed Mode of Arrival: Ambulatory Information source: Patient Notes: This 28-year-old female presents to the emergency department post laceration to her left forearm. Patient was recently IVC'd for SI, cutting herself. She was discharged yesterday with sutures intact. Presents back today with complaints of increased pain at the suture site and drainage. No complaints of fever vomiting diarrhea. Dictation of this chart was performed using voice recognition software; therefore, there may be some unintended grammatical errors. I have greeted and performed a rapid initial assessment of this patient. A comprehensive ED assessment and evaluation of the patient, analysis of test results and completion of the medical decision making process will be conducted by additional ED providers. TRAVEL OUTSIDE OF THE [place] IN LAST 30 DAYS: No - Related Data Allergies/Adverse Reactions: medroxyprogesterone acetate [From Depo-Provera] Allergy (Verified 01/13/18 13:59) Past Medical History Renal/ Medical History: Denies: Hx Peritoneal Dialysis Psychiatric Medical History: Reports: Hx Depression Past Surgical History: Reports: Hx Section - x2, Hx Cholecystectomy, Other - instrument 11-4 - Immunizations Hx Diphtheria, Pertussis, Tetanus Vaccination: No Physical Exam - Vital signs Vitals: Temp Pulse Resp BP Pulse Ox 98.3 F 58 L 16 129/83 H 98 05/02/19 18:06 05/02/19 18:06 05/02/19 18:06 05/02/19 18:06 05/02/19 18:06 Course - Vital Signs Vital signs: Temp Pulse Resp BP Pulse Ox 98.3 F 58 L 16 129/83 H 98 05/02/19 18:06 05/02/19 18:06 05/02/19 18:06 05/02/19 18:06 05/02/19 18:06 Doctor's Discharge - Discharge Referrals: FELICE SANTIAGO FNP-C [Primary Care Provider] - Follow up as needed
[2019-05-02 18:46] LABS: ABSOLUTE BASOPHILS # (AUTO) 0.1 10^3/uL (0.0-0.2); ABSOLUTE EOSINOPHILS # (AUTO) 0.4 10^3/uL (0.0-0.6); ABSOLUTE LYMPHOCYTES (AUTO) 2.6 10^3/uL (0.5-4.7); ABSOLUTE MONOCYTES (AUTO) 0.6 10^3/uL (0.1-1.4); ABSOLUTE NEUT (AUTO) 5.2 10^3/uL (1.7-8.2); BASOPHILS % (AUTO) 0.6 % (0-2); EOSINOPHILS % (AUTO) 4.3 % (0-6); HEMATOCRIT 38.9 % (36.0-47.0); HEMOGLOBIN 13.6 g/dL (12.0-15.5); LYMPHOCYTES % (AUTO) 29.4 % (13-45); MEAN CORPUSCULAR HEMOGLOBIN 30.9 pg (27.0-33.4); MEAN CORPUSCULAR VOLUME 88 fl (80-97); MONOCYTES % (AUTO) 6.5 % (3-13); PLATELET COUNT 208 10^3/uL (150-450); RED BLOOD COUNT 4.41 10^6/uL (3.72-5.28); RED CELL DISTRIBUTION WIDTH 14.6 % (11.5-14.0); SEGMENTED NEUTROPHILS % (AUTO) 59.2 % (42-78); TOTAL CELLS COUNTED % (AUTO) 100 %; WHITE BLOOD COUNT 8.9 10^3/uL (4.0-10.5)
[2019-05-02 19:11] LABS: ALBUMIN 4.2 g/dL (3.5-5.0); ALKALINE PHOSPHATASE 90 U/L (38-126); ANION GAP 10 (5-19); ASPARTATE AMINO TRANSFERASE 34 U/L (14-36); BILIRUBIN,DIRECT 0.1 mg/dL (0.0-0.4); BILIRUBIN,TOTAL 0.3 mg/dL (0.2-1.3); BLOOD UREA NITROGEN 15 mg/dL (7-20); CALCIUM 9.6 mg/dL (8.4-10.2); CARBON DIOXIDE 23 mmol/L (22-30); CHLORIDE 108 mmol/L (98-107); GLUCOSE 85 mg/dL (75-110); POTASSIUM 4.3 mmol/L (3.6-5.0); TOTAL PROTEIN 7.1 g/dL (6.3-8.2)
--- NOTE | 2019-05-02 19:33 | ER Document Report ---
HPI - HPI Time Seen by Provider: 05/02/19 18:11 Pain Level: 3 Context: Patient is a 28-year-old female who presents the emergency department to have her laceration of her left forearm evaluated. She was seen here in the emergency department for suicidal ideation and she had cut herself at that time. She was discharged yesterday and she states that she has had drainage from the laceration. Denies any purulent drainage, but states that the drainage was clear and would dry yellow. Denies any fever, body aches or chills. Patient denies any suicidal or homicidal ideation. - CONSTITUTIONAL Constitutional: DENIES: Fever, Chills - REPRODUCTIVE Reproductive: DENIES: : - MUSCULOSKELETAL Musculoskeletal: REPORTS: Extremity pain - At laceration site of left arm. DENIES: Swelling - DERM Skin Problems: Laceration - Left arm with sutures in place Past Medical History - General Information source: Patient - Social History Smoking Status: Never Smoker Chew tobacco use (# tins/day): No Frequency of alcohol use: None Drug Abuse: None Family History: Reviewed & Not Pertinent Patient has suicidal ideation: No Patient has homicidal ideation: No Renal/ Medical History: Denies: Hx Peritoneal Dialysis Psychiatric Medical History: Reports: Hx Depression Past Surgical History: Reports: Hx Section - x2, Hx Cholecystectomy, Other - instrument 11-4 - Immunizations Hx Diphtheria, Pertussis, Tetanus Vaccination: No Vertical Provider Document - CONSTITUTIONAL Agree With Documented VS: Yes Exam Limitations: No Limitations General Appearance: No Apparent Distress - INFECTION CONTROL TRAVEL OUTSIDE OF THE [place] IN LAST 30 DAYS: No - HEENT HEENT: Atraumatic, Normocephalic, PERRLA - NECK Neck: Normal Inspection - RESPIRATORY Respiratory: No Respiratory Distress - CARDIOVASCULAR Cardiovascular: Regular Rhythm Pulses: Normal: Radial - MUSCULOSKELETAL/EXTREMETIES Musculoskeletal/Extremeties: FROM, Non-Tender, No Edema - NEURO Level of Consciousness: Awake, Alert, Appropriate Motor/Sensory: No Motor Deficit, No Sensory Deficit - DERM Integumentary: Warm, Dry, Laceration - With sutures in place, healing appropriately Course - Re-evaluation Re-evalutation: 05/02/19 Patient's laceration is healing well. The drainage that patient is describing is serous fluid. I explained to the patient that serous fluid drainage is normal. I have advised her that if she sees purulent drainage, then she should return to the emergency department. The laceration is healing appropriately. The laceration is not warm to the touch. No cellulitis noted. Patient will follow up with the health department to have her sutures removed. Patient denies any suicidal or homicidal ideation at this time. At this time the patient is safe for discharge. Follow-up precautions were given. Verbal discharge instructions were given to the patient. They verbalized understanding. They are stable for discharge. - Vital Signs Vital signs: Temp Pulse Resp BP Pulse Ox 98.3 F 58 L 16 129/83 H 98 05/02/19 18:06 05/02/19 18:06 05/02/19 18:06 05/02/19 18:06 05/02/19 18:06 - Laboratory Result Diagrams: 05/02/19 18:25 05/02/19 18:25 Laboratory results interpreted by me: 05/02/19 05/02/19 18:25 18:25 RDW 14.6 H Chloride 108 H Discharge - Discharge Clinical Impression: Laceration re-check Condition: Stable Disposition: HOME, SELF-CARE Additional Instructions: You were seen today in the emergency department for an evaluation of your laceration. It is healing well. Your labs are normal. The clear drainage is normal. Please follow-up with the health department to have your sutures rem emmanuel on the day they are supposed to be removed. Referrals: FELICE SANTIAGO, S[employer] OPERATOR-C [Primary Care Provider] - Follow up in 3-5 days
[2019-05-02 19:49] VITALS: BP 124/74
== END 2019-05-02 19:43 | disposition home or self-care (01) ==
LOC: ER 18:02
DX: S51.812A Laceration without foreign body of left forearm, initial encounter (principal); X78.9XXA Intentional self-harm by unspecified sharp object, initial encounter
CPT/HCPCS: 36415; 80053; 85025; 99283

== ENCOUNTER 2019-05-13 12:13 | Emergency (ER) | payer MEDICAID ==
[2019-05-13 12:24] VITALS: BP 125/78
--- NOTE | 2019-05-13 12:29 | ER Document Report ---
HPI - HPI Patient complains to provider of: suture removal Time Seen by Provider: 05/13/19 12:24 Onset: Other Quality of pain: Achy Severity: None Context: This 28-year-old female presents to emergency department with request for suture removal. Patient had sutures placed on May 02 post self-inflicted laceration. Site looks benign. She denies fever vomiting diarrhea. Patient does report that when she extends her arm fully she feels like something is tugging inside her arm. Associated Symptoms: None Exacerbated by: Movement Relieved by: Denies Similar symptoms previously: Yes Recently seen / treated by doctor: Yes - REPRODUCTIVE Reproductive: DENIES: : Past Medical History - General Information source: Patient - Social History Smoking Status: Unknown if Ever Smoked Frequency of alcohol use: Occasional Occupation: None Lives with: Family Family History: Reviewed & Not Pertinent Patient has suicidal ideation: No Patient has homicidal ideation: No Renal/ Medical History: Denies: Hx Peritoneal Dialysis Psychiatric Medical History: Reports: Hx Depression Past Surgical History: Reports: Hx Section - x2, Hx Cholecystectomy, Other - instrument 11-4 - Immunizations Hx Diphtheria, Pertussis, Tetanus Vaccination: No Vertical Provider Document - CONSTITUTIONAL Agree With Documented VS: Yes Exam Limitations: No Limitations General Appearance: WD/WN, No Apparent Distress - INFECTION CONTROL TRAVEL OUTSIDE OF THE [place] IN LAST 30 DAYS: No - HEENT HEENT: Atraumatic, Normocephalic - NECK Neck: Supple - RESPIRATORY Respiratory: No Respiratory Distress - CARDIOVASCULAR Cardiovascular: Regular Rate - MUSCULOSKELETAL/EXTREMETIES Musculoskeletal/Extremeties: MAEW, FROM, Non-Tender - NEURO Level of Consciousness: Awake, Alert, Appropriate Motor/Sensory: No Motor Deficit - DERM Integumentary: Warm, Dry Adult Front & Back Diagram: 1 - sutures intact, site benign. 2 - pt reports tugging feeling upon full extension of left arm Course - Re-evaluation Re-evalutation: 05/13/19 14:01 28-year-old female presents emergency department with request for suture re moval. She had her sutures placed on May 02 post self-inflicted laceration. She reports pain when she extends her arm fully. Patient has good radial pulse cap refill less than 2 seconds. Site looks benign. Review of records shows repair of a superficial laceration. Patient has good [employer] team member, full range of motion. Site looks benign, no swelling/erythema/warmth/discharge. Patient was instructed to continue monitoring site follow-up with her primary care provider for referral if she continues to have concerns. She verbalized understanding to all instructions. Dictation of this chart was performed using voice recognition software; therefore, there may be some unintended grammatical errors. - Vital Signs Vital signs: Temp Pulse Resp BP Pulse Ox 98.4 F 71 16 125/78 98 05/13/19 12:21 05/13/19 12:21 05/13/19 12:21 05/13/19 12:21 05/13/19 12:21 Discharge - Discharge Clinical Impression: Visit for suture removal Condition: Stable Disposition: HOME, SELF-CARE Instructions: Suture Removal Additional Instructions: *You have been treated for suture removal *Monitor the site for signs of infection such as increasing pain, redness, swelling, warmth *Keep the area clean *Follow up with a primary care provider within 1 week for recheck as indicated *Return to ED for signs of infection, worsening condition, changes, needs Referrals: FELICE SANTIAGO, CRM ARCHITECT-C [COMMUNITY BASED STAFF] - Follow up in 1 week
== END 2019-05-13 12:41 | disposition home or self-care (01) ==
LOC: ER 12:13
DX: S51.812D Laceration without foreign body of left forearm, subsequent encounter (principal); X83.8XXD Intentional self-harm by other specified means, subsequent encounter; Z90.49 Acquired absence of other specified parts of digestive tract

== ENCOUNTER 2019-05-21 18:42 | Emergency (ER) | payer MEDICAID, OTHER ==
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
[2019-05-21] MEDS ORDERED: CEFTRIAXONE INJ 250 MG VIAL IM ONE (22:44)
[2019-05-21] MEDS ORDERED: LIDOCAINE 1% INJ-PF (10 MG/ML) 30 ML SDV IM ONE (22:44)
[2019-05-21] MEDS ORDERED: METRONIDAZOLE 500 MG TABLET PO ONE (22:44)
[2019-05-21] MEDS ORDERED: LEVONORGESTREL 1.5 MG TABLET (1 TAB/ER-USE) PO ONE (22:45)
[2019-05-21] MEDS ORDERED: AZITHROMYCIN 250 MG TABLET PO ONE (22:45)
[2019-05-21] MEDS ORDERED: ONDANSETRON 4 MG TAB.RAPDIS PO ONE (22:46)
[2019-05-22 00:21] LABS: ABSOLUTE BASOPHILS # (AUTO) 0.1 10^3/uL (0.0-0.2); ABSOLUTE EOSINOPHILS # (AUTO) 0.3 10^3/uL (0.0-0.6); ABSOLUTE LYMPHOCYTES (AUTO) 2.9 10^3/uL (0.5-4.7); ABSOLUTE MONOCYTES (AUTO) 0.9 10^3/uL (0.1-1.4); ABSOLUTE NEUT (AUTO) 4.1 10^3/uL (1.7-8.2); BASOPHILS % (AUTO) 0.7 % (0-2); EOSINOPHILS % (AUTO) 3.6 % (0-6); HEMOGLOBIN 15.3 g/dL (12.0-15.5); LYMPHOCYTES % (AUTO) 35.1 % (13-45); MEAN CORPUSCULAR HEMOGLOBIN 30.2 pg (27.0-33.4); MEAN CORPUSCULAR HGB CONC 34.1 g/dL (32.0-36.0); MEAN CORPUSCULAR VOLUME 89 fl (80-97); MONOCYTES % (AUTO) 10.5 % (3-13); PLATELET COUNT 274 10^3/uL (150-450); RED BLOOD COUNT 5.08 10^6/uL (3.72-5.28); RED CELL DISTRIBUTION WIDTH 14.5 % (11.5-14.0); SEGMENTED NEUTROPHILS % (AUTO) 50.1 % (42-78); TOTAL CELLS COUNTED % (AUTO) 100 %; WHITE BLOOD COUNT 8.2 10^3/uL (4.0-10.5)
[2019-05-22 00:37] LABS: ALBUMIN 4.8 g/dL (3.5-5.0); ALKALINE PHOSPHATASE 103 U/L (38-126); ANION GAP 13 (5-19); ASPARTATE AMINO TRANSFERASE 46 U/L (14-36); BILIRUBIN,DIRECT 0.1 mg/dL (0.0-0.4); BILIRUBIN,TOTAL 0.3 mg/dL (0.2-1.3); BLOOD UREA NITROGEN 6 mg/dL (7-20); CALCIUM 9.7 mg/dL (8.4-10.2); CARBON DIOXIDE 24 mmol/L (22-30); CHLORIDE 105 mmol/L (98-107); GLUCOSE 100 mg/dL (75-110); POTASSIUM 3.8 mmol/L (3.6-5.0)
[2019-05-22] MEDS ORDERED: EMTRICITABINE/TENOFOVIR 200-300 MG TAB (3 TAB/ER DISP) PO PRN (00:57)
[2019-05-22] MEDS ORDERED: RALTEGRAVIR 400 MG TAB (6 TAB/ER DISP) PO PRN (00:57)
[2019-05-22 01:41] VITALS: BP 118/79
[2019-05-23 07:37] LABS: HEPATITS B SURFACE ANTIGEN Negative (Negative)
[2019-05-23 09:43] LABS: HEPATITIS C VIRUS ANTIBODY <0.1 s/co ratio (0.0-0.9)
== END 2019-05-22 01:41 | disposition home or self-care (01) ==
LOC: ER 18:42
DX: T76.21XA Adult sexual abuse, suspected, initial encounter (principal); R51 Headache; M25.511 Pain in right shoulder; M25.561 Pain in right knee; M25.562 Pain in left knee; F17.200 Nicotine dependence, unspecified, uncomplicated
CPT/HCPCS: 36415; 85025; 81025; 86592; 80053; 86701; 80074; Q0144; A9270; S0119; J3490 ×2; J0696; 99284

== ENCOUNTER 2019-12-04 17:25 | Emergency (ER) | payer OTHER, MEDICAID ==
[2019-12-04] MEDS ORDERED: ONDANSETRON HCL INJ/PF 4 MG/2 ML SDV IV ONE (18:56)
[2019-12-04] MEDS ORDERED: NORMAL SALINE 1000 ML 1,000 ML IV ONE (18:56)
[2019-12-04 19:17] LABS: ABSOLUTE BASOPHILS # (AUTO) 0.1 10^3/uL (0.0-0.2); ABSOLUTE MONOCYTES (AUTO) 0.9 10^3/uL (0.1-1.4); ABSOLUTE NEUT (AUTO) 16.6 10^3/uL (1.7-8.2); BASOPHILS % (AUTO) 0.5 % (0-2); EOSINOPHILS % (AUTO) 0.2 % (0-6); HEMATOCRIT 45.2 % (36.0-47.0); HEMOGLOBIN 15.3 g/dL (12.0-15.5); LYMPHOCYTES % (AUTO) 5.4 % (13-45); MEAN CORPUSCULAR HEMOGLOBIN 30.3 pg (27.0-33.4); MEAN CORPUSCULAR HGB CONC 33.8 g/dL (32.0-36.0); MEAN CORPUSCULAR VOLUME 90 fl (80-97); MONOCYTES % (AUTO) 4.6 % (3-13); PLATELET COUNT 243 10^3/uL (150-450); RED BLOOD COUNT 5.03 10^6/uL (3.72-5.28); RED CELL DISTRIBUTION WIDTH 14.2 % (11.5-14.0); SEGMENTED NEUTROPHILS % (AUTO) 89.3 % (42-78); TOTAL CELLS COUNTED % (AUTO) 100 %; WHITE BLOOD COUNT 18.6 10^3/uL (4.0-10.5)
--- NOTE | 2019-12-04 19:32 | ER Document Report ---
ED General - General Chief Complaint: Nausea/Vomiting Stated Complaint: VOMITING Time Seen by Provider: 12/04/19 18:32 Mode of Arrival: Ambulatory Information source: Patient TRAVEL OUTSIDE OF THE [place] IN LAST 30 DAYS: No - HPI Notes: Patient presents complaining of nausea and vomiting. She states is been going on for approximately 2 days. She does not know of anything that makes it better or worse. She has some mild cramping in the abdomen that radiates throughout the abdomen. She has no vaginal discharge or urinary complaints. She states she does not believe she is and she uses control. She states she did start a new medicine for depression approximately 2 weeks ago and feels this may be the problem. She has not had any fevers. No known covid exposures. - Related Data Allergies/Adverse Reactions: medroxyprogesterone acetate [From Depo-Provera] Allergy (Verified 05/02/19 18:1 4) Home Medications: Trazadone. Duloxetine Past Medical History - General Information source: Patient - Social History Smoking Status: Never Smoker Frequency of alcohol use: None Drug Abuse: None Family History: Reviewed & Not Pertinent Patient has homicidal ideation: No Renal/ Medical History: Denies: Hx Peritoneal Dialysis Psychiatric Medical History: Reports: Hx Anxiety, Hx Depression Past Surgical History: Reports: Hx Section - x2, Hx Cholecystectomy, Other - instrument 11-4 - Immunizations Hx Diphtheria, Pertussis, Tetanus Vaccination: Yes Review of Systems - Review of Systems Constitutional: Malaise. denies: Chills, Fever Cardiovascular: denies: Chest pain, Palpitations Respiratory: denies: Cough, Short of breath -: Yes All other systems reviewed and negative Physical Exam - Vital signs Vitals: Temp Pulse Resp BP Pulse Ox 97.4 F 56 L 18 119/76 97 12/04/19 18:41 12/04/19 18:41 12/04/19 18:41 12/04/19 18:41 12/04/19 18:41 Interpretation: Normal - General General appearance: Appears well, Alert - HEENT Head: Normocephalic, Atraumatic Eyes: Normal Pupils: PERRL - Respiratory Respiratory status: No respiratory distress Chest status: Nontender Breath sounds: Normal Chest palpation: Normal - Cardiovascular Rhythm: Regular Heart sounds: Normal auscultation Murmur: No - Abdominal Inspection: Normal Distension: No distension Bowel sounds: Normal Tenderness: Nontender Organomegaly: No organomegaly - Back Back: Normal, Nontender - Extremities General upper extremity: Normal inspection, Nontender, Normal color, Normal ROM, Normal temperature General lower extremity: Normal inspection, Nontender, Normal color, Normal ROM, Normal temperature, Normal weight bearing. No: Meggan's sign - Neurological Neuro grossly intact: Yes Cognition: Normal Orientation: AAOx4 Severn Coma Scale Eye Opening: Spontaneous Margarita Coma Scale Verbal: Oriented Severn Coma Scale Motor: Obeys Commands Margarita Coma Scale Total: 15 Speech: Normal Motor strength normal: LUE, RUE, LLE, RLE Sensory: Normal - Psychological Associated symptoms: Normal affect, Normal mood - Skin Skin Temperature: Warm Skin Moisture: Dry Skin Color: Normal Course - Re-evaluation Re-evalutation: 12/04/19 22:11 Patient presents with persistent vomiting. She has unremarkable work-up other than white cell count is elevated and patient has increased fluid in her stomach. I called and discussed the case with the radiologist and he stated there is nothing obvious to explain why there was increased fluid in the stomach. He said there is no evidence of any type of mass or gastric outlet obstruction. On exam now patient has a benign abdomen with no tenderness. She states she feels much better. She has consumed two 8 ounce cans of jolly gogo without problem. Possibly patient has some mild gastroparesis. I am going to send the patient home with nausea medication and have her follow-up with her primary care physician. - Vital Signs Vital signs: Temp Pulse Resp BP Pulse Ox 97.4 F 56 L 18 119/76 97 12/04/19 18:47 12/04/19 18:41 12/04/19 18:41 12/04/19 18:41 12/04/19 18:41 - Laboratory Result Diagrams: 12/04/19 19:04 12/04/19 19:04 Laboratory results interpreted by me: 12/04/19 12/04/19 12/04/19 19:04 19:04 20:36 WBC 18.6 H RDW 14.2 H Lymph % (Auto) 5.4 L Absolute Neuts (auto) 16.6 H Seg Neutrophils % 89.3 H Glucose 152 H ALT 45 H Urine Protein 30 H Urine Glucose (UA) 50 H Urine Ketones 20 H Urine Blood LARGE H - Diagnostic Test Radiology reviewed: Image reviewed, Reports reviewed Discharge - Discharge Clinical Impression: Vomiting Qualifiers: Vomiting type: unspecified Vomiting Intractability: intractable Nausea presence: with nausea Qualified Code(s): R11.2 - Nausea with vomiting, unspecified Condition: Stable Disposition: HOME, SELF-CARE Instructions: Vomiting ([facility]), Intravenous (IV) Fluids ([facility]), Reglan ([facility]) Additional Instructions: Please call Dr. Yates office as soon as possible to arrange follow up Prescriptions: Metoclopramide HCl [Reglan 10 mg Tablet] 1 tab PO Q6 20 Days #25 tablet Forms: Return to Work Referrals: GRADY MCCLELLAND MD [ACTIVE STAFF] - Follow up in 3-5 days
[2019-12-04 19:45] LABS: ALBUMIN 4.8 g/dL (3.5-5.0); ALKALINE PHOSPHATASE 89 U/L (38-126); ANION GAP 11 (5-19); ASPARTATE AMINO TRANSFERASE 36 U/L (14-36); BILIRUBIN,TOTAL 0.2 mg/dL (0.2-1.3); BLOOD UREA NITROGEN 14 mg/dL (7-20); CALCIUM 9.5 mg/dL (8.4-10.2); CARBON DIOXIDE 24 mmol/L (22-30); CHLORIDE 103 mmol/L (98-107); GLUCOSE 152 mg/dL (75-110); POTASSIUM 3.7 mmol/L (3.6-5.0); TOTAL PROTEIN 7.8 g/dL (6.3-8.2)
[2019-12-04 21:03] LABS: APPEARANCE,URINE SLIGHTLY-CLOUDY; BILIRUBIN,URINE NEGATIVE (NEGATIVE); COLOR,URINE YELLOW; GLUCOSE, URINE 50 mg/dL (NEGATIVE); KETONES,URINE 20 mg/dL (NEGATIVE); PROTEIN,URINE 30 mg/dL (NEGATIVE); URINE SPECIFIC GRAVITY 1.028; UROBILINOGEN,URINE NEGATIVE mg/dL (<2.0)
--- NOTE | 2019-12-04 21:57 | RADIOLOGY REPORT (SQ) ---
EXAM DESCRIPTION: CT abdomen and pelvis without contrast CLINICAL HISTORY: 29 years Female, abd pain/vomiting COMPARISON: None. TECHNIQUE: Axial images of the abdomen and pelvis were performed without the use of intravenous contrast, with sagittal and coronal reformatted images. This exam was performed according to our departmental dose-optimization program which includes use of Automated Exposure Control, adjustment of the mA and/or kV according to patient size and/or use of iterative reconstruction technique. FINDINGS: There is a large amount of fluid in the stomach. No evidence of bowel obstruction. The appendix appears normal. There is diverticulosis without diverticulitis. There is no significant radiographic abnormality of the liver, spleen, pancreas, adrenal glands or kidneys. No mass or adenopathy. No free air or free fluid. IMPRESSION: Large amount of fluid in the stomach. Please correlate clinically.
[2019-12-04 22:38] VITALS: BP 118/74
== END 2019-12-04 22:38 | disposition home or self-care (01) ==
LOC: ER 17:25
DX: R11.2 Nausea with vomiting, unspecified (principal); R53.81 Other malaise; R10.84 Generalized abdominal pain; Z90.49 Acquired absence of other specified parts of digestive tract; Z20.828 Contact with and (suspected) exposure to other viral communicable diseases
CPT/HCPCS: 99283; 96361; 96374; 36415; 83690; 85025; 87635; 81025; 80053; 81001; 74176; J2405; J7030